=== PATIENT | female | born 1960 | race Caucasian/White ===

== ENCOUNTER 2017-01-11 10:58 | Emergency (ER) | payer MEDICARE ==
[2017-01-11 14:37] VITALS: BP 174/111
--- NOTE | 2017-01-11 14:37 | UC ---
Lower Extremity/Ankle HPI - HPI Summary HPI Summary: fell twisted left ankle 1 week ago---continued swelling and bruising, discomfort with weight bearing - History of Current Complaint Chief Complaint: UCLowerExtremity Stated Complaint: LEFT ANKLE INJURY Time Seen by Provider: 01/11/17 14:32 Hx Obtained From: Patient ?: No Onset/Duration: Sudden Onset, Lasting Weeks - 1, Still Present Severity Initially: Moderate Severity Currently: Mild Pain Intensity: 4 Pain Scale Used: 0-10 Numeric Aggravating Factor(s): Standing, Ambulation Alleviating Factor(s): Rest, Elevation Able to Bear Weight: Yes - with pain - Allergies/Home Medications Allergies/Adverse Reactions: Allergies Allergy/AdvReac Type Severity Reaction Status Date / Time No Known Allergies Allergy Verified 01/11/17 14:37 Home Medications: Home Medications Aspirin TAB* 325 mg PO DAILY 01/11/17 [History Confirmed 01/11/17] PMH/Surg Hx/FS Hx/Imm Hx Previously Healthy: No Neurological History Of: Reports: CVA - Surgical History Surgical History: None - Family History Known Family History: Positive: Unknown - Social History Occupation: Disabled Lives: With Family Alcohol Use: Occasionally Substance Use Type: None Smoking Status (MU): Never Smoked Tobacco Review of Systems Constitutional: Negative Skin: Negative Eyes: Negative ENT: Negative Respiratory: Negative Cardiovascular: Negative Gastrointestinal: Negative Genitourinary: Negative Motor: Negative Neurovascular: Negative Musculoskeletal: Arthralgia, Edema, Other: - Swelling, bruising lateral ankle tender to touch Neurological: Negative Psychological: Negative All Other Systems Reviewed And Are Negative: Yes Physical Exam Triage Information Reviewed: Yes Appearance: No Pain Distress, Well-Nourished, Ill-Appearing - chronic Vital Signs: Initial Vital Signs Temp 98.2 F 01/11/17 14:27 Pulse 111 01/11/17 14:27 Resp 16 01/11/17 14:27 BP 174/111 01/11/17 14:27 Pulse Ox 97 01/11/17 14:27 Vital Signs Reviewed: Yes Eye Exam: Normal Eyes: Positive: Conjunctiva Clear ENT Exam: Normal ENT: Positive: Normal ENT inspection, Hearing grossly normal. Negative: Nasal congestion, Nasal drainage, Trismus, Muffled/hoarse voice Neck exam: Normal Neck: Positive: Supple, Nontender, No Lymphadenopathy Respiratory Exam: Normal Respiratory: Positive: Chest non-tender, No respiratory distress, No accessory muscle use Cardiovascular Exam: Normal Cardiovascular: Positive: RRR, Pulses Normal, Brisk Capillary Refill Musculoskeletal: Positive: Strength Intact, ROM Limited @ - right ankle, Edema @ - right ankle Neurological Exam: Normal Neurological: Positive: Alert Psychological Exam: Normal Psychological: Positive: Normal Response To Family - At patients usual baseline Skin Exam: Normal Diagnostics - Laboratory Diagnostic Studies Completed/Ordered: non-displaced lateral malleolus fracture Lower Extremity Course/Dx - Course Course Of Treatment: cam boot, walker (as patient unable to use crutches) rice, follow with ortho on Saturday - Differential Dx/Diagnosis Differential Diagnosis/HQI/PQRI: Contusion, Fracture (Closed), Sprain, Strain Provider Diagnoses: Lateral left non-displaced malleolus fracture Discharge - Discharge Plan Condition: Stable Disposition: HOME Patient Education Materials: Ibuprofen (By mouth), Ankle Fracture (ED), RICE Therapy (ED) Referrals: Ángel Poe MD [Medical Doctor] - 4 Days Non Staff,Doctor [Medical Doctor] -
--- NOTE | 2017-01-11 15:05 | RAD ---
Indication: LEFT ankle injury with pain, swelling, bruising. Injury one week ago. Comparison: None. Technique: AP, mortise, and lateral views LEFT ankle. Report: Bone density is decreased throughout. Subtle nondisplaced fracture of the lateral malleolus below level of the superior margin of the ankle mortise. The ankle mortise remains congruent. Diffuse soft tissue swelling most marked over the lateral malleolus. IMPRESSION: Nondisplaced fracture lateral malleolus. Predisposing decreased bone density. Severe associated soft tissue swelling.
== END 2017-01-11 15:51 | disposition home or self-care (01) ==
LOC: UCCORT 10:58
DX: S82.65XA Nondisplaced fracture of lateral malleolus of left fibula, initial encounter for closed fracture (principal); W18.39XA Other fall on same level, initial encounter; X50.1XXA Overexertion from prolonged static or awkward postures, initial encounter; Z79.82 Long term (current) use of aspirin; Z86.73 Personal history of transient ischemic attack (TIA), and cerebral infarction without residual deficits
CPT/HCPCS: 99203; G0463